=== PATIENT | male | born 1960 | race Caucasian/White ===

== ENCOUNTER → 2020-01-04 | Day surgery (SDC) | payer BC | LOC: MSO 07:20 | DX: K21.9 Gastro-esophageal reflux disease without esophagitis (principal); K22.2 Esophageal obstruction; K44.9 Diaphragmatic hernia without obstruction or gangrene; K29.30 Chronic superficial gastritis without bleeding; E03.9 Hypothyroidism, unspecified; E78.2 Mixed hyperlipidemia; I10 Essential (primary) hypertension; N52.9 Male erectile dysfunction, unspecified; Z79.899 Other long term (current) drug therapy | CPT/HCPCS: 00731; C1769; J2704; J7120 ==